=== PATIENT | male | born 1990 | race Caucasian/White ===

== ENCOUNTER 2018-01-03 09:27 | Emergency (ER) | payer OTHER ==
[2018-01-03] MEDS: ONDANSETRON 4 MG INJ IV (10:31)
[2018-01-03] MEDS: LORAZEPAM 2 MG INJ IV (10:31)
[2018-01-03] MEDS: SOD CHLORIDE 0.9% 1,000 ML IV (10:32)
[2018-01-03] MEDS: morphine 2 MG INJ IV (10:32)
[2018-01-03 10:42] LABS: ADD MAN DIFF? NO
[2018-01-03 10:44] LABS: BASOPHIL # 0.1 10^3/ul (0.0-0.1); BASOPHILS % 1.2 % (0.0-2.0); EOSINOPHILS % 0.5 % (0.0-7.0); HEMATOCRIT 45.5 % (42.0-52.0); HEMOGLOBIN 15.3 g/dl (14.0-18.0); LYMPHOCYTES # 2.6 10^3/ul (0.8-2.9); LYMPHOCYTES % 32.5 % (15.0-51.0); MEAN CORPUSCULAR HEMOGLOBIN 29.3 pg (29.0-33.0); MEAN CORPUSCULAR HGB CONC 33.6 g/dl (32.0-37.0); MEAN CORPUSCULAR VOLUME 87.2 fl (82.0-101.0); MEAN PLATELET VOLUME 10.3 fl (7.4-10.4); MONOCYTE # 0.7 10^3/ul (0.3-0.9); MONOCYTES % 8.8 % (0.0-11.0); NEUTROPHIL # 4.6 10^3/ul (1.6-7.5); NEUTROPHILS % 56.8 % (39.0-77.0); PLATELET COUNT 280 10^3/UL (140-415); RED BLOOD COUNT 5.22 10^6/ul (4.70-6.10); RED CELL DISTRIBUTION WIDTH 12.4 % (11.5-14.5)
[2018-01-03 11:05] LABS: ANION GAP 19 (8-16); BLOOD UREA NITROGEN 15 mg/dl (7-20); CALCIUM 9.2 mg/dl (8.4-10.2); CARBON DIOXIDE 27 mmol/L (21-31); CHLORIDE 101 mmol/L (97-110); CREATININE 0.77 mg/dl (0.61-1.24); GLUCOSE 100 mg/dl (70-220); POTASSIUM 4.5 mmol/L (3.5-5.1); SODIUM 142 mmol/L (135-144)
[2018-01-03 11:22] LABS: TROPONIN-I < 0.012 ng/ml (0.00-0.12)
[2018-01-03] MEDS: SOD CHLORIDE 0.9% 100 ML (12:28)
[2018-01-03] MEDS: IOHEXOL 350MG/ML 50 ML BTL (12:28)
[2018-01-03] MEDS: IOHEXOL 100 ML (12:28)
[2018-01-03] MEDS: HYDROCODONE/APAP (10/325) TAB PO (13:52)
== END 2018-01-03 13:56 | disposition home or self-care (01) ==
LOC: E/R 09:27
DX: F41.1 Generalized anxiety disorder (principal); R00.2 Palpitations; I10 Essential (primary) hypertension
CPT/HCPCS: 36415; 71045; 71275; 80048; 84484; 85025; 93005; 96374; 96375; 99285-25